=== PATIENT | female | born 1965 | race Caucasian/White ===

== ENCOUNTER 2018-07-14 15:04 | Emergency (ER) | payer OTHER ==
[~2018-07-14] VITALS: Ht 152.4 cm; Wt 172.4 kg
[~2018-07-14 15:04] MED LIST: ACCUNEB0.63 MG/3; ADVAIR 100-501 EACH; GLIMEPIRIDE4 MG; HUMULIN N3 ML; LANTUS SOLOSTAR3 ML; LASIX20 MG; LISINOPRIL20 MG; METFORMIN HCL850 MG; NEURAXON500 MG; SINGULAIR10 MG; VENTOLIN HFA18 GM
[2018-07-14] MEDS ORDERED: HUMULIN R500 UNIT/1 (15:30)
== END 2018-07-14 18:00 | disposition home or self-care (01) ==
LOC: ER 15:04
DX: H01.005 Unspecified blepharitis left lower eyelid (principal); L03.115 Cellulitis of right lower limb; M79.602 Pain in left arm